=== PATIENT | male | born 1965 | race Caucasian/White ===

== ENCOUNTER 2018-05-18 21:40 | Emergency (ER) | payer OTHER ==
--- NOTE | 2018-05-18 22:56 | XRay Report ---
FINAL REPORT EXAM: XR ABDOMEN 2V HISTORY: States a fishbone is stuck in his rectum COMPARISON: None available. FINDINGS: AP views of the abdomen obtained. Small to moderate amount of stool in the colon. Gas is scattered wi thin nondilated bowel. There is a radiopaque calculus projecting over left mid abdomen measuring 9 mi llimeters. This could be renal in origin. No definite bony foreign body identified projecting over rectal region. IMPRESSION: No definite bony foreign body identified projecting over rectal region. Nonobstructive bowel gas pattern. Possible left renal calculus.
--- NOTE | 2018-05-19 00:23 | Emergency Department Report ---
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 He said he had tilapia fish that was fried and he was eating the bone and Saturday and believe it is now stuck in his rectum. He does not remember whether or not he swallowed a bone but he said it feels hard up in his rectal area when he thinks that the bone. He denies any rectal bleeding or any vomiting blood. Reports some abdominal cramping on and off. Reports feeling bloated. He said he had a bowel movement since he eats fish but it was not a normal bowel movement. Denies blood in bowel movement. Denies any back pain. Abdominal pain is 6 out of 10 and crampy generalized and said he feels full. Denies any urinary burning, frequency or urgency. Denies any diarrhea. Denies any nausea or vomiting. Patient does have a primary care physician. He denies any fever or chills. Denies any penile discharge or testicular pain or swelling. -: This evening Location: abdomen Radiation: none Severity: moderate Severity scale (0 -10): 6 Quality: other (full and crampy) Consistency: intermittent Improves with: none Worsens with: none other (patient believes that he has a fish bone in his rectum and says when he put his finger in his rectum he can feel something hard. Denies any history of hemorrhoids). denies: discharge, swelling, mass, rash, urinary retention, blood in urine, dysuria, fever, nausea/vomiting, incontinence - Related Data Sexually active: Yes Previous Rx's Medication Instructions Recorded Last Taken Type Docusate Sodium [Colace] 100 mg PO BID 10 Days #60 capsule 05/19/18 Unknown Rx Allergies Allergy/AdvReac Type Severity Reaction Status Date / Time No Known Allergies Allergy Verified 05/19/18 01:25 ED Review of Systems ROS: Stated complaint: ABD PAIN Other details as noted in HPI Constitutional: denies: chills, fever ENT: denies: throat pain Respiratory: denies: cough, shortness of breath, SOB with exertion, SOB at rest, wheezing Cardiovascular: denies: chest pain, palpitations, dyspnea on exertion, edema, syncope Gastrointestinal: abdominal pain. denies: nausea, vomiting, diarrhea, constipation, hematemesis, hematochezia Genitourinary: other (rectal pain when trying to have a bowel movement and feels like he has a fish bone stuck cross way in his rectal area). denies: urgency, dysuria, frequency, hematuria, discharge Musculoskeletal: denies: back pain, joint swelling, arthralgia, myalgia Skin: denies: rash Neurological: denies: headache, numbness, paresthesias, abnormal gait, vertigo ED Past Medical Hx - Past Medical History Previous Medical History?: No - Surgical History Past Surgical History?: Yes Additional Surgical History: surgery on his testicle - Family History Family history: hypertension - Social History Smoking Status: Never Smoker Substance Use Type: None - Medications Home Medications: Home Medications Medication Instructions Recorded Confirmed Last Taken Type Docusate Sodium [Colace] 100 mg PO BID 10 Days #60 capsule 05/19/18 Unknown Rx ED Physical Exam - General Limitations: No Limitations General appearance: alert, in no apparent distress - Head Head exam: Present: atraumatic, normocephalic, normal inspection - Eye Eye exam: Present: normal appearance, PERRL, EOMI Pupils: Present: normal accommodation - ENT ENT exam: Present: normal exam, normal orophraynx, mucous membranes moist, TM's normal bilaterally, normal external ear exam - Neck Neck exam: Present: normal inspection, full ROM. Absent: tenderness - Respiratory Respiratory exam: Present: normal lung sounds bilaterally. Absent: respiratory distress, wheezes, rales, rhonchi, stridor, chest wall tenderness, accessory muscle use, decreased breath sounds, prolonged expiratory - Cardiovascular Cardiovascular Exam: Present: regular rate, normal rhythm, normal heart sounds. Absent: systolic murmur, diastolic murmur - GI/Abdominal GI/Abdominal exam: Present: soft, distended, normal bowel sounds. Absent: tenderness, guarding, rebound, rigid, organomegaly, mass, bruit, pulsatile mass, hernia - Rectal Rectal exam: Present: normal inspection, normal rectal tone, fecal impaction, tenderness. Absent: black stool, bloody stool, hemorrhoids, mass - exam: Present: normal inspection. Absent: testicular tenderness, urethral discharge, scrotal swelling, vertical testicular lie, circumcision External exam: Present: normal external exam. Absent: erythema, swelling, lesions, lacerations, ecchymosis, bleeding - Extremities Exam Extremities exam: Present: normal inspection, full ROM, normal capillary refill, other (No cce. + 2 pulses in all extremities, no neurovascular compromise). Absent: tenderness, pedal edema, joint swelling, calf tenderness - Back Exam Back exam: Present: normal inspection, full ROM, other (ambulates without any difficulties). Absent: tenderness, CVA tenderness (R), CVA tenderness (L), muscle spasm, paraspinal tenderness, vertebral tenderness, rash noted - Neurological Exam Neurological exam: Present: alert, oriented X3, normal gait, reflexes normal. Absent: motor sensory deficit ED Course Vital Signs 05/18/18 05/18/18 21:44 21:49 Temperature 99.0 F 99.0 F Pulse Rate 69 68 Respiratory 18 18 Rate Blood Pressure 132/70 132/70 O2 Sat by Pulse 98 98 Oximetry - Reevaluation(s) Reevaluation #1: 05/19/18 00:[address] Longo who is the attending physician and discuss case with them and he wants her to call GI doctor. Reevaluation #2: 05/19/18 01:[address] Knight who is GI doctor on-call for [place] and he wants her to do a rectal examine patient to feel for fishbone. Patient just had a large BM without any blood in stool per patient. He still having rectal pain and will give him Tylenol. 05/19/18 04:54 Reevaluation #3: 05/19/18 02:02 Patient had Fleet enema and he said that he had 3 bowel movements and the first one was very hard. He said they were very large. He said he still feels like he has something up there so I plan to give the patient magnesium citrate while in emergency room. He is stable and in no acute distress. I spoke to Dr. Aruna sherman who is the on-call GI doctor and he agrees up and and said that if patient is feeling better after Fleet and magnesium citrate then he can go home but if not then he needs to be admitted. Reevaluation #4: 05/19/18 02:54 Patient was given magnesium citrate and he has had been a large amount of bowel movement which is soft and he said he is feeling a lot better. No abdominal cramping or feeling a foreign body sensation in his rectal area at present. Reevaluation #5: 05/19/18 04:53 Patient had several bowel movements without any pain after mag citrate. He was reevaluated and abdomen is not bloated at present and he has no tenderness. He denies any rectal pain. We talked about high-fiber diet and increase in fluid intake as family member reports the patient does not drink water and his diet is poor with little fruits and vegetables. - Consultations Consultation #1: 05/19/18 01:05 Dr Craft, Gi oncall Consultation #2: 05/19/18 02:15 Gi retail salesperson, Dr Craft ED Medical Decision Making - Lab Data Result diagrams: 05/19/18 00:59 Lab Results 05/19/18 Range/Units 00:59 WBC 10.7 (4.5-11.0) K/mm3 RBC 4.86 (3.65-5.03) M/mm3 Hgb 15.7 H (11.8-15.2) gm/dl Hct 45.5 (35.5-45.6) % MCV 94 (84-94) fl MCH 32 (28-32) pg MCHC 35 H (32-34) % RDW 12.9 L (13.2-15.2) % Plt Count 303 (140-440) K/mm3 Lymph % (Auto) 23.5 (13.4-35.0) % Howard % (Auto) 7.4 H (0.0-7.3) % Eos % (Auto) 1.1 (0.0-4.3) % Baso % (Auto) 0.8 (0.0-1.8) % Lymph # 2.5 (1.2-5.4) K/mm3 Howard # 0.8 (0.0-0.8) K/mm3 Eos # 0.1 (0.0-0.4) K/mm3 Baso # 0.1 (0.0-0.1) K/mm3 Seg Neutrophils % 67.2 (40.0-70.0) % Seg Neutrophils # 7.2 (1.8-7.7) K/mm3 - Radiology Data Radiology results: report reviewed Abdominal 2 views dictated by radiologist and report reviewed by myself. Please see details below Findings [facility] [address] [place] [address] XRay Report Signed Patient: NELLY BERTRAND MR#: [id number] : 1965 Acct:[id number] Age/Sex: 53 / M ADM Date: 05/18/18 Loc: ED Attending Dr: Ordering Physician: SELENA SKINNER Date of Service: 05/18/18 Procedure(s): XR abdomen 2V Accession Number(s): [id number] cc: SELENA SKINNER Fluoro Time In Minutes: FINAL REPORT EXAM: XR ABDOMEN 2V HISTORY: States a fishbone is stuck in his rectum COMPARISON: None available. FINDINGS: AP views of the abdomen obtained. Small to moderate amount of stool in the colon. Gas is scattered within nondilated bowel. There is a radiopaque calculus projecting over left mid abdomen measuring 9 millimeters. This could be renal in origin. No definite bony foreign body identified projecting over rectal region. IMPRESSION: No definite bony foreign body identified projecting over rectal region. Nonobstructive bowel gas pattern. Possible left renal calculus. Transcribed By: LMA Dictated By: CONNIE MAYNARD MD Electronically Authenticated By: CONNIE MAYNARD MD Signed Date/Time: 05/18/182255 DD/ 53 TD/TT: 05/18/182253 - Medical Decision Making Sales And Events Coordinator used This is a 53-year-old male here reports that he has fish bone in his rectal area. Rectal exam demonstrated patient with fecal impaction. Physical findings for a distended abdomen with no tenderness of palpation. Bowel sounds were normal. Patient was given Tylenol 975 mg in ED to help with pain. I spoke to Dr. Craft who is the GI attending several times after speaking with Dr. Longo. Rectal exam done and patient unable to tolerate disimpaction so he was given Fleet enema 1 and had 3 large BM the first when he said was very hard and he still felt like there was something in his rectal area so we gave him 300 mL of magnesium citrate and patient has been having bowel movements several times throughout the night and said he feels 100% better without any rectal pain. He said he does not feel anything in his rectal area. Denies any rectal bleeding. Patient had 2 views abdominal x-ray which shows stool in rectum and CBC was stable and this was medicated to patient's via foreign language interpreter and he voiced understanding. He said he does not have any abdominal pain. Patient is able to tolerate water without any nausea or vomiting. When he initially came in the emergency room he was pacing at [place] his stomach and now he is walking around with a smile on his face. Patient given information on high fiber diet, fruits and vegetable and diet that causes constipation and he voiced understanding. Discharged home in stable condition with prescription for Colace for stool softener to increase his fluid intake to 3-3 L of water a day to include water, cranberry juice, apple juice and prune juice. Discharge home and his family in stable condition. Patient will be referred to the back to his primary care and also the GI follow-up in 2-3 days and he voiced understanding. - Differential Diagnosis rectal foreign body, internal versus external hemorrhoid, constipation Critical care attestation.: If time is entered above; I have spent that time in minutes in the direct care of this critically ill patient, excluding procedure time. ED Disposition Clinical Impression: Fecal impaction in rectum, Abdominal cramping Disposition: DC- TO HOME OR SELFCARE Is pt being admited?: No Does the pt Need Aspirin: No Condition: Stable Instructions: Fecal Impaction (ED), Constipation (ED), High Fiber Diet (ED), Abdominal Pain (ED), Gas and Bloating (ED) Additional Instructions: Please follow up a primary care physician in 2-3 days and if he does not have one you can see referral to another primary care physician Follow up with [facility] in 2-3 days for constipation. He said he had a colonoscopy 5 years ago so follow-up just to make sure everything is okay with your colon. If he notices any bleeding from rectal area, please go to the closest emergency room Take Colace stool softener as prescribed and follow discharge instruction on high fiber diet and please increase your water intake to at least 2-3 L of water If your condition worsens, return to the emergency room Por favor, eh un seguimiento con un mdico de atencin primaria en 2 o 3 hassan y si no tiene ronnie, puede consultar a otro mdico de atencin primaria. Eh un seguimiento con gastroenterologa de [place] en 2-3 hassan para el estreimiento. Dijo que se hizo yung colonoscopia hace 5 aos, as que eh un seguimiento para asegurarse de que todo est mauro con buckner colon. Si nota algn sangrado en el carina rectal, dirjase a la venkatesh de emergencias ms cercana. [place] el ablandador de heces Colace segn lo prescrito y siga las instrucciones de lizbeth en la dieta lizbeth en fibra y aumente buckner consumo de agua a por lo menos 2- 3 L de agua Si buckner condicin empeora, regrese a la venkatesh de emergencias. Prescriptions: Docusate Sodium [Colace] 100 mg PO BID 10 Days #60 capsule Referrals: GUILLERMO ALONSO [Primary Care Provider] - 2-3 Days [facility] [Provider Group] - 2-3 Days your, primary care physician [Other] - 2-3 Days Forms: Accompanied Note, Work/School Release Form(ED) Print Language: KHMER
[2018-05-19 01:08] LABS: Basophils # (Auto) 0.1 K/mm3 (0.0-0.1); Basophils % (Auto) 0.8 % (0.0-1.8); Eosinophils # (Auto) 0.1 K/mm3 (0.0-0.4); Eosinophils % (Auto) 1.1 % (0.0-4.3); Hematocrit 45.5 % (35.5-45.6); Hemoglobin 15.7 gm/dl (11.8-15.2); Lymphocytes # (Auto) 2.5 K/mm3 (1.2-5.4); Lymphocytes % (Auto) 23.5 % (13.4-35.0); Mean Corpuscular HGB Conc 35 % (32-34); Mean Corpuscular Volume 94 fl (84-94); Monocytes # (Auto) 0.8 K/mm3 (0.0-0.8); Monocytes % (Auto) 7.4 % (0.0-7.3); Platelet Count 303 K/mm3 (140-440); Red Blood Count 4.86 M/mm3 (3.65-5.03); Red Cell Distribution Width 12.9 % (13.2-15.2)
[2018-05-19] MEDS ORDERED: TYLENOL PO ONE (01:12)
[2018-05-19] MEDS ORDERED: FLEET PR ONE (01:23)
[2018-05-19] MEDS ORDERED: DULCOLAX PO ONE (01:23)
[2018-05-19] MEDS ORDERED: CITRATE OF MAGNESIA PO ONE (02:01)
[2018-05-19 05:20] VITALS: BP 133/72
== END 2018-05-19 05:18 | disposition home or self-care (01) ==
LOC: ED 21:40
DX: K62.4 Stenosis of anus and rectum (principal)
CPT/HCPCS: 36415; 74019; 85025; 99284